=== PATIENT | male | born 1970 | race Caucasian/White ===

== ENCOUNTER 2020-04-08 12:23 | Emergency (ER) | payer OTHER, SELFPAY ==
[2020-04-08 12:35] VITALS: BP 129/84; PULSE 62; RESP 15; TEMP 35.7; O2SAT 97; BMI 28.7
[2020-04-08] MEDS: oxyCODONE HCl Immed Release 5 MG TABLET PO (12:54)
[2020-04-08] MEDS: Lidocaine HCl 2 % MPF 5 ML VIAL SUBCUT (12:56)
--- NOTE | 2020-04-08 14:14 | ED_ITS ---
HPI - Wound/Laceration General Chief Complaint: Wound/Laceration Stated Complaint: l thumb laceration at work Time Seen by Provider: 04/08/20 12:37 Source: patient Mode of arrival: ambulatory Limitations: no limitations History of Present Illness HPI narrative: 50-year-old male presenting to the ED after sustaining a laceration at work by a razor blade accidentally. Admits to numbness. Denies possible foreign bodies. Denies any other injuries. Reports he is up-to-date on his tetanus received 2 years ago. Related Data Previous Rx's Medication Instructions Recorded doxycycline hyclate 100 mg PO BID 10 Days #20 cap 04/08/20 ibuprofen 800 mg PO Q8H PRN #14 tab 04/08/20 oxycodone 5 mg PO Q6H PRN #14 tab 04/08/20 Allergies Allergy/AdvReac Type Severity Reaction Status Date / Time penicillin V Allergy Unknown Rash Verified 04/08/20 12:53 Penicillins [PENICILLINS] Allergy Unknown RASH/HIVES Verified 04/08/20 12:54 Review of Systems Review of Systems: Yes all other systems are reviewed and are negative PMFSH Past Medical History Attestation statement: The following information was validated with the patient. Social History Social History Smoking Status: Never smoker Use of substances other than those prescribed or required for medical reasons: No Advance Directives: No Advance Directives Information Provided: No Physical Exam Vital Signs: Vital Signs: Vital Signs Temp Pulse Resp BP Pulse Ox 04/08/20 12:35 96.2 F L 62 15 129/84 97 Body Mass Index 28.7 Const: General: cooperative, healthy appearing, comfortable, no acute distress, well developed, alert, awake and Physically active Nutritional Appearance: average body habitus and well nourished Orientation/consciousness: patient oriented x3 Limitations: no limitations HENMT: Head: Yes normal to inspection, Yes No palpable skull fracture present, Yes normocephalic and Yes atraumatic Ears: hearing grossly normal bilaterally General nose exam: Normal external nose present Face and sinus: Yes normal facial exam Mouth: moist mucous membranes Eyes: General: appearance normal, both eyes and all related structures Visual Nassar: normal visual nassar by confrontation Alignment and Position: alignment normal Periorbital: periorbital findings normal Eyelids: Yes eyelids normal Conjunctivae: conjunctivae normal Sclerae: sclerae normal Pupils: Equal, round and reactive pupils present EOM: EOMs intact bilaterally Neck: Neck: Yes normal visual inspection, Yes full ROM, Yes no lymphadenopathy, Yes no meningeal signs, Yes trachea midline and Yes supple Chest: Chest palpation & inspection: normal inspection of the chest Resp: Effort & Inspection: normal respiratory effort and able to speak in complete sentences Auscultation: clear to auscultation bilaterally, no crackles, no rales, no rhonchi and no wheezes Cardio: Rate: regular rate Rhythm: regular rhythm Heart sounds: S1 normal heart sound present and S2 normal heart sound present Peripheral pulses: Peripheral pulses 2+ throughout GI: Inspection: Yes normal to inspection Palpation (GI): Soft to palpation, nontender and No hepatosplenomegaly present Percussion: Yes normal to percussion Auscultation: normal bowel sounds : General: Yes no CVA tenderness Back/Spine/Pelvis: Back: no CVA tenderness Cervical Spine: normal cervical lordosis and cervical ROM normal Thoracic/Lumbar Spine: thoracic and lumbar spine normal to inspection and thoraco-lumbar ROM normal Skin: General skin exam: no rashes or lesions noted, elasticity normal and turgor normal Trauma: no lacerations or abrasions Wounds: no wounds Hair: normal Nails: normal Neuro: General: patient oriented x3 and no meningeal signs Cranial nerves: Yes CN's II-XII intact bilaterally and Yes Equal, round and reactive pupils present Cognition (Neuro): normal cognition Gait exam (Neuro): Normal gait present Motor exam (neuro): 5/5 motor strength present throughout Extrem: General: Yes normal to inspection, Yes full ROM, Yes capillary refill normal, Yes no clubbing, cyanosis or edema, No no pedal edema, No no calf tenderness, Yes normal gait and No edema Right upper extremity: normal to ins pection, full ROM, normal capillary refill and Extremity exam: right hand Details: normal capillary refill, neuromotor exam normal, neurosensory exam normal, tendon exam normal, normal ROM of fingers, no swelling and laceration (6 cm in length ) thumb Details: L-shaped, actively bleeding, with pulsatile bleeding, contaminated, involving subcutaneous tissue, involving muscle tissue, with motor nerve function intact and with sensation intact; not with foreign body present; no unusual warmth, no abrasions, no ecchymosis, no crepitus, no foreign bodies and no puncture wound; no edema Left upper extremity: normal to inspection, full ROM and normal capillary refill; no edema Right lower extremity: normal to inspection, full ROM and normal capillary refill; no edema Left lower extremity: normal to inspection, full ROM and normal capillary refill; no edema Psych: Appearance: grossly normal and well kempt Mental Status: mental status grossly normal Speech and movement: Normal speech and movement present and Clear speech present Affect: normal affect Attitude: cooperative Thought process: Normal thought process present Thought content: Normal thought content present Insight: Good insight present (Psych) Judgement: Good judgement present (Psych) Course Course Course Narrative: Patient is now status post laceration repair. Patient tolerated procedure well. Will DC home with antibiotics and symptomatic treatment instructions return if any new or worsening symptoms and to return in 10 days for suture removal and gave him hand surgeon referral at [facility] was printed out and given to him in hand. Procedures Laceration Laceration 1: Site: hand (thumb ) Side (If applicable): right Size (cm): 6 Description: linear ( L-shaped) Depth: involves muscle layer Local Anesthetic: lidocaine 1% and lidocaine 2% Amount of anesthesia used (mL): 10 Pre-repair: wound explored, irrigated extensively and deep structures intact Skin layer closed with: nylon (7 suture ) Muscle layer closed with: other (absorable ) Size: 3-0 Number of sutures: 1 Technique: simple, interrupted Discharge Plan Discharge Clinical Impression: Laceration Patient Disposition: Home, Self-Care Instructions: Laceration (ED) Additional Instructions: Please follow-up with hand surgeon Dr. Mitchell at [address] [place] [address] floor 3 at [facility] at [phone] Prescriptions: New doxycycline hyclate 100 mg capsule 100 mg PO BID 10 Days Qty: 20 RF: 0 oxycodone 5 mg tablet 5 mg PO Q6H PRN (Reason: pain) Qty: 14 RF: 0 ibuprofen 800 mg tablet 800 mg PO Q8H PRN (Reason: pain) Qty: 14 RF: 0 Referrals: Jacqui Hernandez PA [Emergency Midlevel Provider] - 04/18/20 (For suture removal within 10-14 days ) Stand Alone Forms: Work/School Release Print Language: [place]
== END 2020-04-08 14:29 | disposition home or self-care (01) ==
PROVIDERS: Emergency Provider Emergency Medicine
DX: S61.011A Laceration without foreign body of right thumb without damage to nail, initial encounter (principal); M79.641 Pain in right hand; W26.8XXA Contact with other sharp object(s), not elsewhere classified, initial encounter; Y93.9 Activity, unspecified; Y92.9 Unspecified place or not applicable; Y99.0 Civilian activity done for income or pay
CPT/HCPCS: 12042; 99283; 99284

== ENCOUNTER 2021-09-11 10:12 | Emergency (ER) | payer OTHER, SELFPAY ==
--- NOTE | ~2021-09-11 | XR_ITS ---
EXAMINATION: XR HAND, LEFT CLINICAL INFORMATION: Second finger laceration COMPARISON: None TECHNIQUE: PA, lateral, and oblique views of the left hand. FINDINGS: Bone alignment is normal. No fracture or dislocation is seen. The joint spaces are normal. No soft tissue foreign body is seen. There may be a small amount of air in the soft tissues of the volar second finger adjacent to the middle phalanx. XR/XR hand LT 2V IMPRESSION: No fracture or foreign body seen.
--- NOTE | 2021-09-11 11:01 | ED_ITS ---
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 Patient is right-hand dominant it with no medical problems here with laceration after being cut with a piece of a metal pipe while working. Tetanus status is up-to-date. Patient denies numbness, tingling, weakness of the extremity. Related Data Previous Rx's Medication Instructions Recorded doxycycline hyclate 100 mg capsule 100 mg PO BID 10 Days #20 cap 04/08/20 ibuprofen 800 mg tablet 800 mg PO Q8H PRN #14 tab 04/08/20 oxycodone 5 mg tablet 5 mg PO Q6H PRN #14 tab 04/08/20 Allergies Allergy/AdvReac Type Severity Reaction Status Date / Time penicillin V Allergy Unknown Rash Verified 04/08/20 12:53 Penicillins [PENICILLINS] Allergy Unknown RASH/HIVES Verified 04/08/20 12:54 Review of Systems Review of Systems: Yes all other systems are reviewed and are negative Constitutional: Constitutional: Reports no additional constitutional complaints, Denies body ache(s), Denies chills, Denies fever(s), Denies headache(s) and Denies weakness Eyes: Eyes: Reports no additional eye complaints and Denies change in vision ENT: Reports system reviewed and no additional complaints, except as documented, Denies dizziness, Denies headache(s), Denies nasal congestion, Denies nasal discharge and Denies neck pain Cardiovascular: Cardiovascular: Reports no additional cardiovascular complaints, Denies chest pain, Denies leg edema and Denies dyspnea Respiratory: Respiratory: Reports no additional respiratory complaints, Denies cough and Denies dyspnea Gastrointestinal: Gastrointestinal: Reports no additional gastrointestinal complaints, Denies abdominal pain, Denies diarrhea, Denies nausea and Denies vomiting Genitourinary: Genitourinary: Denies urinary incontinence Musculoskeletal: Musculoskeletal: Reports no additional musculoskeletal complaints, Denies back pain, Denies arthralgias, Denies joint swelling, Denies neck pain, Denies numbness and Denies tingling Integumentary/Breasts: Skin/Breast: Reports system reviewed and no additional complaints, except as docu and Denies rash Comments: +lac Neurologic: Reports system reviewed and no additional complaints, except as documented, Denies Abnormal speech present, Denies dizziness, Denies headache(s), Denies numbness, Denies tingling and Denies weakness PMFSH Past Medical History Attestation statement: The following information was validated with the patient. Source: old records reviewed and nursing notes reviewed Social History Social History Advance Directives: No Advance Directives Information Provided: No Physical Exam Vital Signs: Vital Signs: Last Vital Signs Temp 97.3 F 09/11/21 11:12 Pulse 60 09/11/21 11:12 Resp 16 09/11/21 11:12 BP 130/71 09/11/21 11:12 Pulse Ox 96 09/11/21 11:12 BMI result Body Mass Index 29.2 Const: General: cooperative, healthy appearing, comfortable and no acute distress Orientation/consciousness: patient oriented x3 Limitations: no limitations HEENT: Head: Yes normal to inspection Ears: hearing grossly normal bilaterally General nose exam: Normal external nose present Face and sinus: Yes normal facial exam Mouth: Normal oral and palatal mucosa present Throat: Yes posterior oropharynx normal Eyes: General: appearance normal, both eyes and all related structures Pupils: Equal, round and reactive pupils present Neck: Neck: Yes normal visual inspection Chest: Chest palpation & inspection: normal inspection of the chest Resp: Effort & Inspection: normal respiratory effort Auscultation: clear to auscultation bilaterally Cardio: Rate: regular rate Rhythm: regular rhythm Peripheral pulses: Peripheral pulses 2+ throughout GI: Inspection: Yes normal to inspection Palpation (GI): Soft to palpation and nontender Auscultation: normal bowel sounds Back/Spine/Pelvis: Thoracic/Lumbar Spine: thoracic and lumbar spine normal to inspection Skin: General skin exam: no rashes or lesions noted Neuro: General: patient oriented x3, no focal motor deficits and normal sensation to monofilament Cranial nerves: Yes Equal, round and reactive pupils present Cognition (Neuro): normal cognition Speech: No Abnormal speech present Gait exam (Neuro): Normal gait present Motor exam (neuro): 5/5 motor strength present throughout Extrem: General: Yes normal to inspection Hand/finger images: 1. 4 cm laceration over the volar aspect. Full range of motion of additional Course Course Course Narrative: 51-year-old male here with laceration to left index finger that occurred while working. Laceration present. Full range of motion. Neurovascular intact distally to the injury. Will check x-rays. Tetanus is already up-to-date. Patient will need wound repair w/digital block 1245-see procedure note. X-ray show no foreign body or acute fracture. Reviewed worrisome signs and symptoms of when to return to the emergency department. Comfortable discharge home. MDM - Wound/Laceration Medical Records Attestation: I reviewed the patient's medical records. Lab Data Attestation: I reviewed the patient's lab results. Imaging Data hand left xray: Attestation: I personally reviewed and interpreted this imaging study as follows: Radiologist's impression: [address] [address] XRay Report Signed Patient: Stan Cazares MR#: [id number] : 1970 Acct:[id number] Age/Sex: 51 / M ADM Date: 09/11/21 Loc: HO.ED Attending Dr: Ordering Physician: Latricia Law NP Date of Service: 09/11/21 Procedure(s): XR hand LT 2V Accession Number(s): [id number] cc: Latricia Law NP~ EXAMINATION: XR HAND, LEFT CLINICAL INFORMATION: Second finger laceration? COMPARISON: None? TECHNIQUE: PA, lateral, and oblique views of the left hand. FINDINGS: Bone alignment is normal. No fracture or dislocation is seen. The joint spaces are normal. No soft tissue foreign body is seen. There may be a small amount of air in the soft tissues of the volar second finger adjacent to the middle phalanx.? XR/XR hand LT 2V IMPRESSION: No fracture or foreign body seen. Procedures Laceration Laceration 1: Site: hand (3rd digit) Side (If applicable): left Size (cm): 4 Description: linear Depth: simple, single layer Local Anesthetic: lidocaine 2% Amount of anesthesia used (mL): 5 Pre-repair: wound explored, irrigated extensively and deep structures intact Skin layer closed with: vicryl Size (cm): 5-0 Number of sutures: 5 Technique: simple, interrupted Nerve Block Nerve Block 1: Local Anesthetic: lidocaine 2% Amount of anesthesia used (mL): 5 Side: left Nerve Blocks: digital Procedure Successful: Yes Patient Tolerated Procedure: well Complications: none Discharge Plan Discharge Clinical Impression: Laceration Patient Disposition: Home, Self-Care Instructions: Finger Laceration (ED) Additional Instructions: Sutures out in 7 days Wash your hand with soap and water daily Do not let the stitches soak in water Prescriptions: No Action doxycycline hyclate 100 mg capsule 100 mg PO BID 10 Days Qty: 20 0RF oxycodone 5 mg tablet 5 mg PO Q6H PRN (Reason: pain) Qty: 14 0RF ibuprofen 800 mg tablet 800 mg PO Q8H PRN (Reason: pain) Qty: 14 0RF Stand Alone Forms: Work/School Release Interventions: ED Discharge Assessment Last Done: 09/11/21 12:36 Discharge Date/Time: 09/11/21 12:39 Print Language: [place]
[2021-09-11 11:12] VITALS: BP 130/71; PULSE 60; RESP 16; TEMP 36.3; O2SAT 96; BMI 29.2
[2021-09-11] MEDS: Lidocaine HCl 2 % MPF 5 ML VIAL SUBCUT (11:21)
== END 2021-09-11 12:39 | disposition home or self-care (01) ==
PROVIDERS: Emergency Provider Emergency Medicine Emergency Medical Services
DX: S61.211A Laceration without foreign body of left index finger without damage to nail, initial encounter (principal); W26.8XXA Contact with other sharp object(s), not elsewhere classified, initial encounter; Y93.89 Activity, other specified; Y92.9 Unspecified place or not applicable; Y99.0 Civilian activity done for income or pay
CPT/HCPCS: 12002; 73120; 99283; 99284